=== PATIENT | male | born 1945 | race Two or more races ===

== ENCOUNTER 2019-07-22 07:35 | Day surgery (SDC) | payer OTHER | END 2019-07-22 15:40 | disposition home or self-care (01) | LOC: AMB-ENDOS 07:35 | DX: D12.3 Benign neoplasm of transverse colon (principal); D12.4 Benign neoplasm of descending colon; K62.1 Rectal polyp; K64.1 Second degree hemorrhoids; Z12.11 Encounter for screening for malignant neoplasm of colon ==